=== PATIENT | female | born 2000 | race Caucasian/White ===

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

== ENCOUNTER → 2019-10-08 | Outpatient (CLI) | payer OTHER ==
[2019-10-09 08:09] LABS: HBSAG SCREEN Negative (Negative); HEP A AB, IGM Negative (Negative); HEP B CORE AB, IGM Negative (Negative); HEP C VIRUS AB <0.1 (0.0-0.9); HIV SCREEN 4TH GENERATION WRFX Non Reactive (Non Reactive)
[2019-10-10 14:11] LABS: CHLAMYDIA BY NAA Negative (Negative); GONOCOCCUS BY NAA Negative (Negative); TRICH VAG BY NAA Negative (Negative)
== END | disposition home or self-care (01) ==
LOC: LAB EV 09:21 → LAB SHORT 09:21
PROVIDERS: Physician Assistant Medical
DX: N89.8 Other specified noninflammatory disorders of vagina (principal)
CPT/HCPCS: 80074; 86592; 87070; 87205; 87389; 87491; 87591; 87661

== ENCOUNTER → 2023-12-18 | Outpatient (CLI) | payer OTHER ==
[2023-12-21 18:16] LABS: C. TRACHOMATIS BY TMA,THINPREP Negative (Negative); N. GONORRHOEAE BY TMA,THINPREP Negative (Negative); SPECIMEN SOURCE Vaginal
== END ==
LOC: LAB 17:25 → LAB SHORT 17:25
PROVIDERS: Obstetrics & Gynecology
DX: Z11.3 Encounter for screening for infections with a predominantly sexual mode of transmission (principal); Z01.419 Encounter for gynecological examination (general) (routine) without abnormal findings
CPT/HCPCS: 87491; 87591; G0123

== ENCOUNTER → 2024-06-03 | Outpatient (CLI) | payer OTHER | LOC: LAB 11:12 → LAB SHORT 11:12 | DX: O09.93 Supervision of high risk pregnancy, unspecified, third trimester (principal) | CPT/HCPCS: 87081; 87150 ==

== ENCOUNTER 2024-06-25 09:35 | Inpatient (IN) | payer OTHER ==
[2024-06-25] VITALS (31 sets, daily range): BP systolic 135–177; BP diastolic 71–104
[~2024-06-25] VITALS: Ht 175.3 cm; Wt 126.0 kg
[2024-06-25] MEDS ORDERED: Acetaminophen 500 MG Tab PO PRN (10:50)
[2024-06-25] MEDS ORDERED: Misoprostol 200 MCG Tab PR PRN (10:50)
[2024-06-25] MEDS ORDERED: Carboprost Tromethamine 250 MCG/ML 1ML Amp IM PRN (10:50)
[2024-06-25] MEDS ORDERED: OXYTOCIN/RINGER'S LACTATE 500 ML IV PRN (10:50)
[2024-06-25] MEDS ORDERED: Methylergonovine Maleate 0.2MG / ML 1ML Amp IM PRN (10:50)
[2024-06-25] MEDS ORDERED: Misoprostol 200 MCG Tab BC PRN (10:50)
[2024-06-25] MEDS ORDERED: Oxytocin 10 Unit / ML Vial IM PRN (10:50)
[2024-06-25] MEDS ORDERED: Tranexamic Acid 100 ML IV SCH (10:50)
[2024-06-25] MEDS ORDERED: Lactated Ringer's 1,000 ML IV PRN ×3 (10:50→21:30)
[2024-06-25] MEDS ORDERED: Ondansetron HCl 2 MG / ML 2ML Vial IV PRN (10:50)
[2024-06-25] MEDS ORDERED: Calcium Carbonate 500 MG Tab Chew PO SCH (10:55)
[2024-06-25] MEDS ORDERED: Lactated Ringer's 1,000 ML IV SCH ×4 (11:05→18:45)
[2024-06-25] MEDS ORDERED: FentaNYL 2mcg/ml-Bup 0.1% Epd 250 ML EPI PRN (11:05)
[2024-06-25] MEDS ORDERED: ePHEDrine Sulfate 50 MG/ML 1ML Injection XX PRN (11:05)
[2024-06-25] MEDS ORDERED: PRENATAL TABLE1 EAC2 PO (11:35)
[2024-06-25 12:54] LABS: Creatinine, Urine Random 24.3 mg/dL (27.00-270.00); Protein, Urine Random 31.6 mg/dL (0.0-11.9); Protein/Creat Ratio, Ur Random 1.3
[2024-06-25] MEDS ORDERED: OXYTOCIN/RINGER'S LACTATE 500 ML IV SCH (16:05)
[2024-06-25 16:19] LABS: BASOPHILS ABSOLUTE AUTO 0.03 K/mm3 (0.00-0.23); BASOPHILS PERCENT AUTO 0 % (0-2); EOSINOPHILS ABSOLUTE AUTO 0.24 K/mm3 (0.00-0.68); EOSINOPHILS PERCENT AUTO 1 % (0-6); Hematocrit 36.5 % (33.0-51.0); Hemoglobin 12.3 g/dL (11.5-16.0); IMMATURE GRAN ABSOLUTE AUTO 0.08 K/mm3 (0.00-0.10); IMMATURE GRAN PERCENT AUTO 1 % (0-1); LYMPHOCYTES ABSOLUTE AUTO 1.59 K/mm3 (0.84-5.20); LYMPHOCYTES PERCENT AUTO 10 % (21-46); MONOCYTES ABSOLUTE AUTO 0.87 K/mm3 (0.16-1.47); MONOCYTES PERCENT AUTO 5 % (4-13); Mean Corpuscular HGB 31.8 pg (26.0-34.0); Mean Corpuscular HGB Conc 33.7 g/dL (31.5-36.5); Mean Corpuscular Volume 94 fL (80-100); NEUTROPHILS ABSOLUTE AUTO 13.81 K/mm3 (1.96-9.15); NEUTROPHILS PERCENT AUTO 83 % (41-73); Platelet Count 178 K/mm3 (150-400); RDW Coefficient Variation 13.9 % (11.7-14.2); RDW Standard Deviation 46.9 fL (35.1-46.3); Red Blood Cell Count 3.87 M/mm3 (3.80-5.20); White Blood Cell Count 16.62 K/mm3 (4.00-11.30)
[2024-06-25 16:33] LABS: Albumin, Blood 2.3 g/dL (3.4-5.0); Albumin/Globulin Ratio 0.6 (0.8-1.8); Bilirubin, Total 0.2 mg/dL (0.1-1.0); Calcium, Blood 9.1 mg/dL (8.5-10.1); Creatinine, Blood 0.56 mg/dL (0.40-1.00); Globulin, Blood 3.9 g/dL (2.2-4.0); Potassium, Blood 4.1 mmol/L (3.5-5.5); Total Protein, Blood 6.2 g/dL (6.4-8.2)
[2024-06-25] MEDS ORDERED: Magnesium Sulfate 500 ML IV SCH (18:45)
[2024-06-25] MEDS ORDERED: Labetalol HCL 5 MG/ML 4ML Injection (Single Dose) IV ONE (18:45)
[2024-06-25] MEDS ORDERED: Labetalol HCL 5 MG/ML 4ML Injection (Single Dose) IV PRN ×2 (18:45)
[2024-06-25] MEDS ORDERED: Magnesium Sul 4 GM/Water100 ML 100 ML IV ONE (18:45)
[2024-06-25] MEDS ORDERED: Magnesium Sulf 2 GM/Water 50ML 50 ML IV SCH (18:45)
[2024-06-25] MEDS ORDERED: Calcium Gluconate 0.465 mEq/ml 10 ml Vial IV PRN (18:45)
[2024-06-25 20:31] LABS: International Normalized Ratio 0.86; Prothrombin Time Results 9.3 Sec (9.7-11.5)
[2024-06-25 20:50] LABS: Creatinine, Blood 0.67 mg/dL (0.40-1.00)
[2024-06-25] MEDS ORDERED: FentaNYL Citrate 50 MCG/ML 2 ML Injection IV PRN (21:20)
[2024-06-25] MEDS ORDERED: Calcium Carbonate 500 MG Tab Chew PO PRN (23:55)
[2024-06-26] VITALS (37 sets, daily range): BP systolic 123–168; BP diastolic 66–108
[2024-06-26] MEDS ORDERED: Labetalol HCL 5 MG/ML 4ML Injection (Single Dose) IV ONE (11:55)
[2024-06-26] MEDS ORDERED: Misoprostol 200 MCG Tab PR PRN (12:45)
[2024-06-26] MEDS ORDERED: Ibuprofen 400 MG Tab PO PRN (12:45)
[2024-06-26] MEDS ORDERED: Witch Hazel/Glycerin PADS TOP PRN (12:45)
[2024-06-26] MEDS ORDERED: Docusate Sodium 100 MG Cap PO PRN (12:45)
[2024-06-26] MEDS ORDERED: Carboprost Tromethamine 250 MCG/ML 1ML Amp IM PRN (12:50)
[2024-06-26] MEDS ORDERED: OXYTOCIN/RINGER'S LACTATE 500 ML IV SCH (12:50)
[2024-06-26] MEDS ORDERED: Ketorolac Tromethamine 30mg Vial IV PRN (12:50)
[2024-06-26] MEDS ORDERED: Benzocaine Topical Anesthetic Spray 60GM TOP PRN (12:50)
[2024-06-26] MEDS ORDERED: Lactated Ringer's 1,000 ML IV SCH (12:50)
[2024-06-26] MEDS ORDERED: Acetaminophen 325 MG TABLET PO PRN (12:50)
[2024-06-26] MEDS ORDERED: Lanolin Cream TOP PRN (12:50)
[2024-06-27] VITALS (8 sets, daily range): BP systolic 138–157; BP diastolic 68–88
--- NOTE | 2024-06-27 00:09 | NUR ---
MAG OFF AT 0009. RN IN ROOM AND PT SLEEPING REGULAR RESPIRATION AT RATE OF 16. MAG OFF AT THIS TIME AND WILL ASSESS BP ONCE PT AWAKE.
--- NOTE | 2024-06-27 04:36 | NUR ---
RN AT BEDSIDE. PT CONTINUE TO SLEEP, UNDISTURBED BY RN IN ROOM. REGULAR RESPIRATIONS AT RATE OF 17.
[2024-06-27] MEDS ORDERED: Prenatal Vit/FE Fumarate/FA 1 Tab PO SCH (09:00)
[2024-06-27] MEDS ORDERED: IBUP800 PO (15:01)
[2024-06-27] MEDS ORDERED: ACET500 PO (15:04)
[2024-06-27] MEDS ORDERED: LANOLIN40 GM TOP (15:04)
--- NOTE | 2024-06-27 15:45 | NUR ---
Printed d/c instructions and teaching reviewed w/both parents for pt and nb. Questions answered to their satisfaction. will prepare for d/c home pending nb lab and pt bp.
[2024-06-27] MEDS ORDERED: NIFEdipine 30 MG TabCR PO ONE (16:15)
--- NOTE | 2024-06-27 20:47 | NUR ---
2006- RN WATCHED FOB PLACED IN CARSEAT. RN WENT OVER DISCHARGE PAPERS/MATCHED BANDS. RN WALKED MOB AND FOB CARYING IN CARSEAT OUT TO CAR. NO QUESTIONS OR CONCERNS FROM PARENTS AT THIS TIME.
== END 2024-06-27 20:15 | disposition home or self-care (01) | DRG 807 ==
LOC: BC 09:35 → OBS 09:35 → BC 10:38
PROVIDERS: ADMIT Family Medicine
PROC: 10E0XZZ Delivery of Products of Conception, External Approach (ICD-10-PCS; principal; 2024-06-26)
DX: O42.02 Full-term premature rupture of membranes, onset of labor within 24 hours of rupture (principal); Z37.0 Single live birth; O14.14 Severe pre-eclampsia complicating childbirth; Z3A.39 39 weeks gestation of pregnancy; O69.81X0 Labor and delivery complicated by cord around neck, without compression, not applicable or unspecified
CPT/HCPCS: 36415; 59025; 80053; 82565; 82570; 83615; 84156; 85025; 85384; 85610; 85730; 86850; 86900; 86901; 86923; 87210; 99214; A9270; J2590; J3475; J7120